=== PATIENT | male | born 1940 | race Caucasian/White ===

== ENCOUNTER → 2021-04-17 13:26 | Outpatient (CLI) | payer MEDICARE, OTHER, SELFPAY ==
[2021-04-17 16:13] LABS: COVID19 -Nasal RAPID Negative (Negative)
== END ==
PROVIDERS: Visit Provider Physician Assistant
DX: Z20.822 Contact with and (suspected) exposure to COVID-19 (principal); Z01.812 Encounter for preprocedural laboratory examination
CPT/HCPCS: 87635; C9803

== ENCOUNTER 2021-04-18 12:41 | Day surgery (SDC) | payer MEDICARE, OTHER, SELFPAY ==
--- NOTE | 2021-04-18 | PATH_ITS ---
[facility] Accession Number: [id number] . 01 Material submitted: . PART A: gastrointestinal site - GASTRIC POLYP PART B: gastrointestinal site - ANTRUM PART C: colon - TRANSVERSE COLON POLYP . 01 Clinical history: . DX COLONOSCOPY/EGD W/POSS BX'S . 02 Diagnosis: A. Stomach, Polyp, Biopsy: Fundic gland polyp. No evidence of Helicobacter on H/E stain. Negative for intestinal metaplasia. Negative for dysplasia and malignancy. . B. Stomach, Antrum, Biopsy: Antral mucosa with no diagnostic abnormality. Negative for Helicobacter organisms by immunohistochemistry. Negative for intestinal metaplasia. Negative for dysplasia and malignancy. . C. Transverse Colon, Polyp, Biopsy: Multiple fragments of tubular adenoma. [facility] 04/21/2021 1353 Local . 02 Electronically signed: . Mili Hernandez MD, Pathologist NPI- [id number] . 01 Gross description: . Part A: GASTRIC POLYP: Received in formalin are 3 fragment(s) of jorge, soft tissue measuring 0.4 x 0.3 x 0.3 cm to 0.2 x 0.1 x 0.1 cm submitted entirely in 1 cassette(s) Part B: ANTRUM: Received in formalin is 1 fragment(s) of jorge, soft tissue measuring 0.4 x 0.3 x 0.2 cm submitted entirely in 1 cassette(s) Part C: TRANSVERSE COLON POLYP: Received in formalin are multiple fragment(s) of jorge, soft tissue measuring 1.4 x 0.4 x 0.2 cm in aggregate submitted entirely in 1 cassette(s) /JAMES 04/19/2021 0529 Local . 02 Microscopic: . B. An immunohistochemical stain was performed to evaluate for Helicobacter organisms and is negative. The control stain showed appropriate reactivity. . * This test was developed and its performance characteristics determined by [facility]. It has not been cleared or approved by the U.S. Food and Drug Administration. The FDA has determined that such clearance or approval is not necessary. This test is used for clinical purposes. It should not be regarded as investigational or for research. . 02 Pathologist provided ICD-10: Z86.010 . 02 CPT . 375358, 965155, 096575, M60133 Performed at: 01 [facility] [address] [id number] MD Robbie Durand MD Phone: [phone] Performed at: 02 [facility] [address] [place] [id number] MD Mili Hernandez MD Phone: [phone]
[2021-04-18] MEDS: LACTATED RINGERS 1,000 ML 42 ML IV (13:36)
[2021-04-18 13:40] VITALS: BP 129/81; PULSE 80; RESP 15; TEMP 36.7; O2SAT 99; BMI 24.3
--- NOTE | 2021-04-18 14:15 | PM.HP.1 ---
History of Present Illness History of Present Illness Date Patient Seen: 04/18/21 Time Patient Seen: 14:15 Chief complaint: DX COLONOSCOPY/EGD W/POSS BX'S Narrative: Patient indicates that his reflux is a little more active over the last few years continues to take omeprazole once daily. He has a personal history of adenomatous colon polyps. He has a personal history of numerous gastric polyps and hiatal hernia. Patient History Family & Social History Social History: household members spouse Tobacco & Substance use: Smoking Status Never smoker alcohol intake current alcohol intake frequency 0-2 drinks per day Substance Use Type does not use Meds Home Medications and Allergies Home Medications Medication Instructions Recorded Confirmed Type levothyroxine 50 mcg tablet 50 mcg PO DAILY 04/18/21 04/18/21 History losartan 25 mg tablet 25 mg PO DAILY 04/18/21 04/18/21 History metformin 500 mg tablet 500 mg PO DAILY 04/18/21 04/18/21 History rosuvastatin 40 mg tablet 40 mg PO BEDTIME 04/18/21 04/18/21 History Allergies Allergy/AdvReac Type Severity Reaction Status Date / Time latex Allergy Redness of Verified 04/18/21 13:37 Skin Review of Systems Review of Systems ROS: Yes All systems reviewed with the patient and are negative except as otherwise documented Exam Vital Signs (past 8 hours): - 04/18/21 13:40 Temperature 98.0 F Pulse Rate 80 Respiratory Rate 15 Blood Pressure 129/81 Pulse Oximetry 99 Oxygen Delivery Method Room Air Const General: cooperative and comfortable Orientation: alert HENMT Head: normocephalic Ears: external ears normal Nose: external nose normal Face and sinus: normal facial exam Mouth: oral mucosae normal Eyes General: appearance normal, both eyes and all related structures Neck Neck: normal visual inspection Chest Chest: normal inspection of the chest Resp Effort & Inspection: normal respiratory effort Auscultation: clear to auscultation bilaterally Cardio Rate: regular rate Rhythm: regular rhythm Heart Sounds: no murmurs GI Inspection: normal to inspection Palpation: soft and No tender Auscultation: normal bowel sounds Skin General: no rashes or lesions noted and No jaundice Neuro General: patient alert and moves all extremities Cognition: normal cognition Speech: speech normal Extrem General: no pedal edema Psych Appearance: grossly normal Assessment & Plan Assessment & Plan narrative: Personal history of multiple gastric polyps. History of hyperplastic polyp histology as well. Ongoing reflux. Personal history of hiatal hernia. EGD for surveillance is planned today. Personal history of colon polyps. Colonoscopy is also planned for today. In light of his previous exam requiring much more ?conscious sedation? Then would be average, monitored anesthesia is planned for today.
--- NOTE | 2021-04-18 14:18 | PM.PREOP ---
Pre-operative Note COVID-19 COVID-19 status: Negative Result date/Date tested (Pos, Neg/Pending): 04/17/21 Interval Note History & Physical reviewed/Exam performed by Physician: Yes Changes to H&P: No H&P completed within 30 days and has changed as indicated here:: today. ASA Class (for procedural sedation): II
--- NOTE | 2021-04-18 15:11 | PM.OP.ENDO ---
Operative Date/Time/Diagnoses Date of procedure: 04/18/21 Time of procedure: 15:11 Pre-op diagnosis: Gastric polyps GERD hiatal hernia personal history of colon polyps Post-op diagnosis: same Procedure & Clinicians Study performed: EGD with biopsies and colonoscopy with cold and hot snare polypectomies Same procedure as scheduled: Yes Indications: Gastric polyps prior hyperplastic histology hiatal hernia GERD personal history of colon polyps Surgeon: Jose Salcedo Procedure Notes SCOAP/Timeout: Done Procedure in detail: After the risks and benefits were explained, written and verbal informed consent was obtained. The patient was brought into the procedure room and placed into the left lateral decubitus position. MAC was applied. The scope was introduced into the mouth through the bite block and advanced under direct visualization to the 2nd portion of the duodenum. The scope was slowly withdrawn carefully examining the mucosa for any defects or lesions. Retroflexed views were accomplished in the stomach. The stomach was decompressed, the scope was then removed from the patient who tolerated the procedure well. The patient was turned around. Digital rectal exam was accomplished no significant pathology appreciated. Scope was introduced into the rectum and advanced to the cecum as identified by the appendiceal orifice and ileocecal valve. The scope was slowly withdrawn to carefully examine the mucosa for any defects or lesions. Multiple direct views were made through the dentate line for exclusion of pathology the colon was decompressed scope removed the patient tolerated the procedure well. Sedation as above Bowel prep adequate Pediatric colonoscope Scope withdrawal time: 14 minutes Sedation minutes: 45 Complications: none Impression: 1. Duodenum this was visually unremarkable from the bulb through to the 2nd portion 2. Stomach: Mild erythema in the antrum. Antral biopsy was acquired for exclusion of H pylori or other histology. Retroflexed views disclosed a moderate sliding gaping hiatal hernia. There a was at least 1 perhaps 5-6 mm polyp seen in the gastric body addressed with cold forceps. No other significant gastric pathology appreciated throughout 3. Esophagus: The squamocolumnar junction correlated top of the gastric folds. GEJ was at approximately 37 cm from the incisors the diaphragmatic pinchcock was at approximately 41 cm from the incisors. No acute erosive esophagitis. No strictures no mass lesions throughout. 4. Colon: Diverticulosis was seen throughout the sigmoid. In the transverse colon there were 4 polyps seen and removed with hot snare x2 and cold snare x2. These ranged in size from perhaps 5-6 mm each. No additional pathology was appreciated throughout. The patient did have a moderately redundant colon. The stiffening doe was required with some abdominal pressure to achieve cecal intubation Endoscopic diagnosis 1. Mild gastropathy 2. Diminutive gastric polyps 3. 4 cm hiatal hernia if 4. Diverticulosis 5. Colon polyps Post-procedure Recommendations: Colonscopy in 3 years Plan for aftercare: 1. Await histopathology 2. Continue anti-reflux therapy 3. Patient is encouraged to remain upright for 3-4 hours after any oral intake 4. If all the polyps return as adenomatous, repeat colonoscopy will be suggested for 3 years. Disposition: PACU
[2021-04-18 15:17] VITALS: BP 103/68; PULSE 65; RESP 12; TEMP 36.3; O2SAT 99
[2021-04-18 15:22] VITALS: BP 108/70; PULSE 64; PULSE 66; RESP 13; RESP 16; O2SAT 98
[2021-04-18 15:27] VITALS: BP 102/70; PULSE 69; RESP 19; O2SAT 98
[2021-04-18 15:34] VITALS: BP 115/77; PULSE 68; RESP 16; O2SAT 98
== END 2021-04-18 15:59 | disposition home or self-care (01) ==
PROVIDERS: Referring Provider Internal Medicine Gastroenterology; Visit Provider Internal Medicine Gastroenterology
PROC: 0DJ08ZZ Inspection of Upper Intestinal Tract, Via Natural or Artificial Opening Endoscopic (ICD-10-PCS; CPT 43235; principal; 2021-04-18 15:00)
PROC: 0DJD8ZZ Inspection of Lower Intestinal Tract, Via Natural or Artificial Opening Endoscopic (ICD-10-PCS; CPT 45378; 2021-04-18 15:00)
DX: Z12.11 Encounter for screening for malignant neoplasm of colon (principal); Z86.010 Personal history of colon polyps; K21.9 Gastro-esophageal reflux disease without esophagitis; K44.9 Diaphragmatic hernia without obstruction or gangrene; G47.33 Obstructive sleep apnea (adult) (pediatric); I10 Essential (primary) hypertension; K31.9 Disease of stomach and duodenum, unspecified; K57.30 Diverticulosis of large intestine without perforation or abscess without bleeding; K31.7 Polyp of stomach and duodenum; D12.3 Benign neoplasm of transverse colon
CPT/HCPCS: 45385; 45380; 43239